=== PATIENT | female | born 1950 | race Two or more races ===

== ENCOUNTER → 2020-03-21 | Outpatient (CLI) | payer MEDICARE | END | disposition home or self-care (01) | LOC: LAB SHORT 19:44 → LAB 19:44 | DX: R10.11 Right upper quadrant pain (principal) | CPT/HCPCS: 87086 ==

== ENCOUNTER 2020-04-09 07:12 | Day surgery (SDC) | payer MEDICARE ==
[~2020-04-09] VITALS: Ht 165.1 cm; Wt 98.4 kg
[~2020-04-09 07:12] MED LIST: ATOR20 PO; CENTRUM SILVER1 EAC2 PO; Florastor250 MG PO; GLIP10 PO; LISI5 PO; MELO7.5 PO; METF500 PO; METO100ER PO; Norvasc5 MG PO; TIZA4 PO
--- NOTE | 2020-04-09 08:37 | NUR ---
Ambulatory in Day Surgery History, Chart, Medications and Allergies reviewed before start of procedure.Lungs clear T/O to Auscultation. Patient confirms NPO status and agrees with scheduled surgery. Pre-Op teaching done. Pt verbalizes understanding.
--- NOTE | 2020-04-09 08:42 | NUR ---
04/09/20 0842 Mary Anne Holbrook History, Chart, Medications and Allergies reviewed before start of procedure. PATIENT CONFIRMS NPO STATUS AND AGREES WITH SCHEDULED PROCEDURE. MONITOR INTACT WITH CONTINUOUS PULSE OXIMETRY AND INTERMITTENT BP. O2 VIA N/C INTACT THROUGHOUT SEDATION/PROCEDURE. 3-LEAD EKG REVIEWED WITH PHYSICIAN PRIOR TO START OF PROCEDURE.
--- NOTE | 2020-04-09 09:33 | NUR ---
RECIEVED PATIENT VSS PATIENT FALLS TO SLEEP AND SNORES
--- NOTE | 2020-04-09 10:06 | NUR ---
Discharge instructions reviewed with patient. Patient verbalizes understanding. Copy given to patient to take home. REVIEWED W/PT DAUGHTER. Discharged via wheelchair to private car for ride home.
== END 2020-04-09 10:13 | disposition home or self-care (01) ==
LOC: ORSCMMR 07:12 → ORD 08:30 → ORSCMMR 08:30
PROVIDERS: Internal Medicine Gastroenterology
PROC: 0DJD8ZZ Inspection of Lower Intestinal Tract, Via Natural or Artificial Opening Endoscopic (ICD-10-PCS; principal; 2020-04-09 08:30)
DX: R19.7 Diarrhea, unspecified (principal); K64.8 Other hemorrhoids; K57.30 Diverticulosis of large intestine without perforation or abscess without bleeding; G47.33 Obstructive sleep apnea (adult) (pediatric); E11.9 Type 2 diabetes mellitus without complications; Z79.899 Other long term (current) drug therapy; Z79.84 Long term (current) use of oral hypoglycemic drugs
CPT/HCPCS: 82947; J2250; J3010; J7120

== ENCOUNTER → 2021-09-15 | Outpatient (CLI) | payer MEDICARE ==
[2021-09-15 17:17] LABS: Anion Gap 6 mmol/L (6-16); Blood Urea Nitrogen 16 mg/dL (8-24); Bun/Creatinine Ratio 17.4 (12.0-20.0); CO2, Blood 28 mmol/L (21-32); Calcium, Blood 9.3 mg/dL (8.5-10.1); Chloride, Blood 102 mmol/L (98-108); Creatinine, Blood 0.92 mg/dL (0.40-1.00); Glomerular Filtration Rate >60 (60-); Glucose, Blood 153 mg/dL (70-99); Sodium, Blood 136 mmol/L (136-145)
== END | disposition home or self-care (01) ==
LOC: LAB SHORT 13:56 → LAB 13:56
PROVIDERS: Student in an Organized Health Care Education/Training Program
DX: I10 Essential (primary) hypertension (principal); E11.69 Type 2 diabetes mellitus with other specified complication
CPT/HCPCS: 36415; 80048; 83036

== ENCOUNTER 2023-04-20 18:44 | Emergency (ER) | payer MEDICARE ==
[~2023-04-20] VITALS: Ht 165.1 cm; Wt 95.7 kg
[2023-04-20 19:02] VITALS: BP 141/86
[2023-04-20 19:37] LABS: BASOPHILS ABSOLUTE AUTO 0.04 K/mm3 (0.00-0.23); BASOPHILS PERCENT AUTO 1 % (0-2); EOSINOPHILS ABSOLUTE AUTO 0.13 K/mm3 (0.00-0.68); EOSINOPHILS PERCENT AUTO 2 % (0-6); Hematocrit 41.1 % (33.0-51.0); Hemoglobin 14.1 g/dL (11.5-16.0); IMMATURE GRAN ABSOLUTE AUTO 0.04 K/mm3 (0.00-0.10); IMMATURE GRAN PERCENT AUTO 1 % (0-1); LYMPHOCYTES ABSOLUTE AUTO 1.93 K/mm3 (0.84-5.20); LYMPHOCYTES PERCENT AUTO 31 % (21-46); MONOCYTES ABSOLUTE AUTO 0.45 K/mm3 (0.16-1.47); MONOCYTES PERCENT AUTO 7 % (4-13); Mean Corpuscular HGB 29.1 pg (26.0-34.0); Mean Corpuscular HGB Conc 34.3 g/dL (31.5-36.5); Mean Corpuscular Volume 85 fL (80-100); Mean Platelet Volume 9.4 fL (9.1-12.4); NEUTROPHILS ABSOLUTE AUTO 3.56 K/mm3 (1.96-9.15); NEUTROPHILS PERCENT AUTO 58 % (41-73); Platelet Count 230 K/mm3 (150-400); RDW Coefficient Variation 13.2 % (11.7-14.2); RDW Standard Deviation 39.6 fL (35.1-46.3); Red Blood Cell Count 4.84 M/mm3 (3.80-5.20); White Blood Cell Count 6.15 K/mm3 (4.00-11.30)
[2023-04-20 20:07] LABS: Albumin, Blood 3.2 g/dL (3.4-5.0); Bilirubin, Total 0.5 mg/dL (0.1-1.0); Bun/Creatinine Ratio 17.3 (12.0-20.0); Creatinine, Blood 1.04 mg/dL (0.40-1.00); Globulin, Blood 3.2 g/dL (2.2-4.0); Total Protein, Blood 6.4 g/dL (6.4-8.2)
--- NOTE | 2023-04-20 23:21 | NUR ---
Call back TOD: Met with decedent's daughter Yue. She requests this magnetic tape typewriter operator to phone her brother Elliott to tell him of their mother's passing. Call placed and eventually Yue is able to speak with her brother. Yue will be picking up her brother to go with her to tell late pt's spouse. Space provided for Yue to decompress and grief high school guidance counselor given. Pt explains she will be able to drive to her brothers without concern. Electrical Engineering Technologist walked her to car. She verbalized gratitude. Touched base with [facility] Location Manager Vin who stated he would call the home Yue had chosen.
== END 2023-04-21 01:19 ==
LOC: ER 18:44
PROVIDERS: Emergency Medicine
DX: I46.9 Cardiac arrest, cause unspecified (principal); R04.2 Hemoptysis; Z88.2 Allergy status to sulfonamides; Z79.899 Other long term (current) drug therapy; Z79.84 Long term (current) use of oral hypoglycemic drugs; E11.9 Type 2 diabetes mellitus without complications; I10 Essential (primary) hypertension; G47.30 Sleep apnea, unspecified
CPT/HCPCS: 31500; 36680; 71046; 80053; 84484; 85025; 92950; 93005; 93010; 96374-59; 96375-59; 99291-25; J3475